=== PATIENT | male | born 1990 | race African-American/Black ===

== ENCOUNTER → 2025-05-26 19:11 | Outpatient (CLI) | payer OTHER, SELFPAY ==
--- NOTE | 2025-05-26 19:15 | DI.MRI.S_ITS ---
PROCEDURE: MR KNEE LT WO CON INDICATIONS: RUPTURE OF PATELLAR TENDON TECHNIQUE: Noncontrast sagittal PD fast spin echo and T2 fast spin echo with fat saturation, sagittal 3-D FLASH with fat saturation; coronal T1 spin echo and PD fast spin echo with fat saturation, and axial PD fast spin echo with fat saturation through the knee. COMPARISON: [facility], CR, XR KNEE 1 OR 2 VIEWS LEFT, 05/20/2025, 21:31. FINDINGS: Image quality: Excellent. There is severe diffuse subcutaneous ill-defined T2 signal elevation. Menisci: The medial and lateral menisci demonstrate normal morphology and internal signal. The meniscal root ligaments appear intact. Cruciate ligaments: The anterior and posterior cruciate ligaments appear intact. Medial structures: The medial collateral ligament appears intact. Visualized portions of the pes anserinus tendons appear normal. No abnormal bursal fluid. Lateral structures: The lateral collateral ligament, long and short heads of the biceps femoris tendon appear intact. The popliteus tendon appears normal. Iliotibial band appears normal. Anterior structures: The quadriceps tendon demonstrates low-grade tearing at the patellar insertion site. There is full-thickness tearing of the superior aspect of the patellar tendon, roughly 15 mm inferior to the patellar insertion site. High- grade tearing of the remaining patellar tendon at the patellar insertion site. Moderate grade tearing of the patellar tendon at the inferior aspect of the full-thickness tear. Patellar alignment is normal. No femoral trochlear dysplasia or ventral trochlear prominence. The lateral patellofemoral ligament demonstrates probable full- thickness tearing posterolaterally. No edema in the infrapatellar fat pad. Bones and cartilage: No bone marrow contusions or fractures. The cartilage of the medial and lateral femorotibial compartments, as well as the patellofemoral compartment, appears normal in thickness. Joint space: There is a moderate knee joint effusion. No Sutton's cyst. Normal appearing synovial plicae are incidentally noted. IMPRESSION: 1. Full-thickness tearing of the patellar tendon. Partial-thickness low-grade tearing of the quadriceps tendon. 2. Knee joint effusion. 3. Diffuse subcutaneous soft tissue injury. Dictated by: Bob Finley M.D. on 05/29/2025 at 11:19 Approved by: Bob Finley M.D. on 05/29/2025 at 11:24
== END ==
LOC: MRI 19:14
PROVIDERS: Referring Provider Orthopaedic Surgery; Visit Provider Orthopaedic Surgery
DX: S76.112A Strain of left quadriceps muscle, fascia and tendon, initial encounter (principal); S86.812A Strain of other muscle(s) and tendon(s) at lower leg level, left leg, initial encounter; M25.462 Effusion, left knee; X58.XXXA Exposure to other specified factors, initial encounter
CPT/HCPCS: 73721